=== PATIENT | female | born 1955 | race Caucasian/White ===

== ENCOUNTER 2018-07-25 16:54 | Inpatient (IN) | payer MEDICARE ==
[~2018-07-25] VITALS: Ht 165.1 cm; Wt 117.5 kg
[2018-07-25] VITALS (15 sets, daily range): O2SAT 93–99
[~2018-07-25 16:54] MED LIST: ATORVASTATIN; BLOOD PRESSURE MED OP; BYETTA IN; CENTRUM1 TAB PO; CHOLESTROL MED; GLUCOPHAGE500 MG PO; [UNRECOGNIZED DRUG - REMARK]; [UNRECOGNIZED DRUG - REMARK]
[2018-07-25 17:56] LABS: COLLECTION METHOD CLEAN CATCH
[2018-07-25 18:05] LABS: MUCOUS Present /lpf; PH 5 (5-8); SQUAMOUS EPITHELIAL None Seen /hpf; URINE APPEARANCE Turbid; URINE BACTERIA None Seen /hpf; URINE BILIRUBIN Negative (NEGATIVE); URINE BLOOD 3+ (NEGATIVE); URINE COLOR Amber; URINE GLUCOSE Negative (NEGATIVE); URINE KETONE Negative (NEGATIVE); URINE LEUKOCYTE ESTERASE 2+ (NEGATIVE); URINE NITRATE Negative (NEGATIVE); URINE PROTEIN(semi-quant) 2+ (NEGATIVE); URINE RBC 0-2 /hpf; URINE UROBILINOGEN Negative (NEGATIVE)
[2018-07-25 18:39] LABS: ALBUMIN 2.5 gm/dL (3.5-5.0); BILIRUBIN,TOTAL 0.6 mg/dL (0.0-1.0); C-REACTIVE PROTEIN 8.5 mg/dL (0.0-0.9); CALCIUM 8.1 mg/dL (8.4-10.2); POTASSIUM 4.7 mmol/L (3.4-5.0); TOTAL PROTEIN 7.3 gm/dL (6.4-8.2)
[2018-07-25 18:40] LABS: CREATININE, serum 4.79 mg/dL (0.52-1.25)
[2018-07-25 18:41] LABS: BASO # 0.1 (0.0-0.2); BASO % 0.4 % (0.0-2.0); EOS # 0.2 (0.0-0.7); EOS % 1.4 % (0-4.0); GRAN # 12.5 (1.4-6.5); GRAN % 88.3 % (42.2-75.2); HEMATOCRIT 30.5 % (37.0-47.0); HEMOGLOBIN 8.9 g/dl (12.5-16.0); LYMPH % 6.8 % (20.0-51.0); MEAN CELL VOLUME 82 fl (80.0-100.0); MEAN CORPUSCULAR HEMOGLOBIN 24 pg (27.0-31.0); MEAN CORPUSCULAR HGB CONC 29 g/dl (33.0-37.0); MONO # 0.3 (0.1-0.6); PLATELET COUNT 222 K/mm3 (130-400); RED BLOOD COUNT 3.71 M/mm3 (4.10-5.30); REDCELL DISTRIBUTION WIDTH-CV 18.3 % (11.5-14.5)
[2018-07-25 21:44] LABS: ARTERIAL BLD GAS TCO2 CT 26.4; ARTERIAL BLOOD GAS BASE EXCESS 0.3 (-2-2); ARTERIAL BLOOD GAS HCO3 25.1 meq/L (22-26); ARTERIAL BLOOD GAS PCO2 41.7 mmHg (35-45); ARTERIAL BLOOD GAS PO2 84.1 mmHg (80-100)
[2018-07-26] VITALS (1258 sets, daily range): BP systolic 67–140; BP diastolic 20–75; PULSE 81–102; TEMP 97.7–99.5; O2SAT 62–100
[2018-07-26 02:51] LABS: ARTERIAL BLD GAS O2 SATURATION 95.4 % (92-100); ARTERIAL BLOOD GAS BASE EXCESS -2.9 (-2-2); ARTERIAL BLOOD GAS HCO3 22.7 meq/L (22-26); ARTERIAL BLOOD GAS PCO2 43.2 mmHg (35-45); ARTERIAL BLOOD GAS PO2 94.4 mmHg (80-100); ARTERIAL BLOOD GAS pH 7.34 (7.35-7.45)
[2018-07-26 05:12] LABS: INR 1.4 (0.8-3.0); PROTHROMBIN TIME 15.5 SECONDS (9.7-12.8)
--- NOTE | 2018-07-26 05:12 | NUR ---
Received a call from [facility] nurse, instructed to increase levophed to 0.3 mcg/kg/min as BP continues to be low with MAP's less than 65.
[2018-07-26 05:18] LABS: CALCIUM 7.4 mg/dL (8.4-10.2); PHOSPHOROUS 3.8 mg/dL (2.5-4.5); POTASSIUM 4.3 mmol/L (3.4-5.0)
--- NOTE | 2018-07-26 05:30 | NUR ---
PT VERY SOMNOLENT AND UNRESPONSIVE TO QUESTIONS. FAMILY UNAVAILABLE DURING TIME OF ADMISSION AND VERY POOR HISTORIAN PER ER NURSE JOSHUA. ADMISSION DONE THROUGH THIS WOODWORK TEACHER'S BEST ABILITY. NO COPY OF MEDICATION OR ANY HOSPITAL/HOSPICE PAPERS BROUGHT WITH PATIENT. FAMILY HAS LIMITED KNOWLEDGE WELL REGARDING PT'S CONDITION AND MEDICATION BROWN.
[2018-07-26 05:31] LABS: ARTERIAL BLD GAS TCO2 CT 19.5; ARTERIAL BLOOD GAS BASE EXCESS -7.7 (-2-2); ARTERIAL BLOOD GAS HCO3 18.3 meq/L (22-26); ARTERIAL BLOOD GAS PCO2 38.8 mmHg (35-45); ARTERIAL BLOOD GAS PO2 66.1 mmHg (80-100); ARTERIAL BLOOD GAS pH 7.29 (7.35-7.45)
[2018-07-26 05:36] LABS: CREATININE, serum 4.62 mg/dL (0.52-1.25)
--- NOTE | 2018-07-26 06:51 | NUR ---
2225 - RECEIVED REPORT FROM DEBBIE LEWIS. 2315 - PT ARRIVED IN UNIT VIA STRETCHER ESCORTED BY TWO RN. PT SOMNOLENT AND ONLY OPENS HER EYES WHEN YOU CALL HER NAME. FAMILY UNAVAILABLE AT THIS TIME AND PER ER NURSE, IS A VERY POOR HISTORIAN. NO COPY OF MEDICATION OR PREVIOUS HOSPITALIZATION WAS BROUGHT WITH PATIENT, COPY REQUESTED FROM [facility] PER DEBBIE LEWIS. 2350 - [facility] CONSULTED. 0030 - CONSENT OBTAINED FROM VIA PHONE CALL ED FOR CENTRAL LINE PLACEMENT. 0130 - CENTRAL LINE AT LEFT JUGULAR PLACED BY DR. JACKSON. 0230 - DRESSING AT THE ABDOMINAL ULCER CHANGED WELL COLOSTOMY BAG AND DRESSING. 0330 - LEVOPHED STARTED PER ORDER. 0530 - LAB CALLED FOR CRITICAL CREATININE OF 4.62, NO NOTIFICATION NEEDED IT SI LOWER FROM PREVIOUS ONE WHICH IS 4.79. 0700 - PT STILL ON LEVOPHED AND CURRENT BP AT LOW 100'S WITH MAP OF 68.
--- NOTE | 2018-07-26 07:01 | NUR ---
LEVOPHED STARTED ORDERED AFTER BOLUS IS DONE.
--- NOTE | 2018-07-26 07:03 | NUR ---
RECEIVED A CALL FROM [facility] HEMA GONZALEZ AND ORDERED TO INCREASE LEVOPHED TO 0.2 MCG/KG/MIN.
[2018-07-26 09:11] LABS: MEAN CELL VOLUME 85 fl (80.0-100.0); MEAN CORPUSCULAR HGB CONC 29 g/dl (33.0-37.0); MEAN PLATELET VOLUME 10.9 fl (7.4-10.4); PLATELET COUNT 211 K/mm3 (130-400); RED BLOOD COUNT 2.91 M/mm3 (4.10-5.30); REDCELL DISTRIBUTION WIDTH-CV 18.3 % (11.5-14.5)
[2018-07-26 09:12] LABS: HEMATOCRIT 24.7 % (37.0-47.0); HEMOGLOBIN 7.1 g/dl (12.5-16.0); MEAN CORPUSCULAR HEMOGLOBIN 24 pg (27.0-31.0)
[2018-07-26 14:21] LABS: ANISOCYTOSIS 2+; BAND 7 % (0-10); LYMPHOCYTE 2 % (20.0-51.0); NEUTROPHILS 85 % (42.0-75.2)
[2018-07-26 14:22] LABS: HYPOCHROMIA 2+; PLATELET ESTIMATE NORMAL (NORMAL)
[2018-07-26 19:02] LABS: ALBUMIN 2.3 gm/dL (3.5-5.0); BILIRUBIN,TOTAL 0.7 mg/dL (0.0-1.0); CALCIUM 7.5 mg/dL (8.4-10.2); CREATININE, serum 3.83 mg/dL (0.52-1.25); POTASSIUM 3.7 mmol/L (3.4-5.0); TOTAL PROTEIN 6.1 gm/dL (6.4-8.2)
--- NOTE | 2018-07-26 19:20 | NUR ---
Received report from Norma Mistry RN.
--- NOTE | 2018-07-26 19:50 | NUR ---
Bedside report given to Laurence LEWIS. Medications and lines verified. Repositioned
--- NOTE | 2018-07-26 20:00 | NUR ---
Pt resting in bed during shift assessment. Pt cooperative and will follow commands. Keeps asking for water. Dark tissue noted on tongue and lips although pt refused oral care other than repeatedly asking for water. Water provided on swabs for oral care at this time. Pt currently has dressings in place on abdomen, panus, and coccyx wounds. Pt unable to answer any orientation questions appropriately besides month and day of . Pt did report currently location was in [place] and the current month pt was incoherent in repeated reply.
[2018-07-27] VITALS (1392 sets, daily range): BP systolic 60–142; BP diastolic 40–123; PULSE 50–111; TEMP 97.7–99.2; O2SAT 61–100
[2018-07-27 00:06] LABS: HEMATOCRIT 25.2 % (37.0-47.0); HEMOGLOBIN 7.4 g/dl (12.5-16.0)
--- NOTE | 2018-07-27 00:30 | NUR ---
Assessment complete. Completed a bed bath due to pt colostomy leakage upon assessment. Pt starting to show signs of increased restlessness through out this time, with refusing to wear oxymask for periods of time. Will try a nasal cannula to see if pt will tolerate better at this time. Dressings to abdomen, panus, and coccyx changed at this time. Scant amount of drainage noted to panus, bowel noted to dressing around stoma on abdomen, and brown drainage noted to coccyx dressing and packing at this time. New dressing put in place.
[2018-07-27 05:58] LABS: BASO % 0.2 % (0.0-2.0); EOS # 0.2 (0.0-0.7); EOS % 1.2 % (0-4.0); GRAN # 11.8 (1.4-6.5); GRAN % 83.1 % (42.2-75.2); LYMPH # 1.3 (1.2-3.4); LYMPH % 9.3 % (20.0-51.0); MEAN CELL VOLUME 83 fl (80.0-100.0); MEAN CORPUSCULAR HGB CONC 30 g/dl (33.0-37.0); MEAN PLATELET VOLUME 10.7 fl (7.4-10.4); MONO # 0.7 (0.1-0.6); MONO % 5.1 % (1.7-9.3); PLATELET COUNT 196 K/mm3 (130-400); RED BLOOD COUNT 3.27 M/mm3 (4.10-5.30); REDCELL DISTRIBUTION WIDTH-CV 17.8 % (11.5-14.5)
[2018-07-27 05:59] LABS: HEMOGLOBIN 8.1 g/dl (12.5-16.0); MEAN CORPUSCULAR HEMOGLOBIN 25 pg (27.0-31.0)
[2018-07-27 06:05] LABS: INR 1.5 (0.8-3.0); PROTHROMBIN TIME 16.9 SECONDS (9.7-12.8)
[2018-07-27 06:09] LABS: ALBUMIN 2.2 gm/dL (3.5-5.0); BILIRUBIN,TOTAL 0.9 mg/dL (0.0-1.0); CREATININE, serum 3.53 mg/dL (0.52-1.25); POTASSIUM 3.6 mmol/L (3.4-5.0); TOTAL PROTEIN 5.8 gm/dL (6.4-8.2)
--- NOTE | 2018-07-27 07:15 | NUR ---
Report provided to Norma Mistry RN. Pt resting in bed at this time with sounds consistent with snoring. Eyes are closed and no restlessness noted.
--- NOTE | 2018-07-27 07:15 | NUR ---
Bedside report recieved from Laurence LEWIS. Patient in bed, sleeps with snoring resps. Medications and lines verified. Repositioned at this time.
--- NOTE | 2018-07-27 14:17 | NUR ---
Patient lives at home with her (Ed Fabiola) in [place], [place] and plans to return home upon discharge. Patient gets medical and physical care assistance from her and supportive family as she has a complicated history of surgeries and has been on hospice in the past. Patient's primary care physician is Dr. Cherie Betancourt, her pharmacy is [facility], and she does not have advance directives completed at this time. food services coordinator will follow up as needed.
--- NOTE | 2018-07-27 15:00 | NUR ---
Comfort care at this time per family wishes. Orders recieved. Medication drips discontinued by Bia Rashid RN. Family at bedside. Question answered and emotioal support provided.
[2018-07-28] VITALS (493 sets, daily range): BP systolic 80; BP diastolic 45; PULSE 101; TEMP 99.4; O2SAT 72–98
--- NOTE | 2018-07-28 03:31 | NUR ---
0130 - DRESSING CHANGED ON ABDOMINAL ULCER AND BUTTOCKS, NOW CLEAN DRY AND INTACT. PT HAD A BED BATH AND BED LINEN CHANGED. PRN MEDICATION GIVEN NEEDED PER ORDER.
--- NOTE | 2018-07-28 07:30 | NUR ---
Bedside report received from DEBBIE Martinez. Wounds reviewed with night nurse, dressings changed. Care of patient assumed at this time.
--- NOTE | 2018-07-28 08:00 | NUR ---
Patient assessment complete. Patient is resting in bed, appears uncomfortable. Will administer medications for patient comfort per MAR. Will continue to monitor.
--- NOTE | 2018-07-28 12:00 | NUR ---
Patient resting in bed. Frequent pain assessments completed. Will continue to monitor.
--- NOTE | 2018-07-28 14:24 | NUR ---
SW called patients and scheduled a Pallative meeting at 10:30 am. Pallative care nurse informed.
--- NOTE | 2018-07-28 15:25 | NUR ---
Advised per psychiatric social worker supervisor Yi, that is not available for palliative consult until tomorrow at 1030. Will plan on meeting with him then to discuss where we go from here. Pt is currently on comfort care here at the hospital.
--- NOTE | 2018-07-28 16:30 | NUR ---
Bed change completed with Madiha and Pietro, RNs. Coccyx dressing and abdominal dressings changed. Linens changed. Patient made comfortable. Will continue to monitor.
--- NOTE | 2018-07-28 17:20 | NUR ---
Report called to DEBBIE Slade. Patient transferred to medical floor, room 357. This nurse takes patient by bed to room. Family present upon arrival. Yany meets this nurse at room. Wounds reviewed with Yany.
--- NOTE | 2018-07-28 18:19 | NUR ---
Patient arrived to room at 1710, received room from [facility] from ICU. Patient transferred to room bed. Upon entering room, family is present. Patient is noted to be laying on left side. Face is flushed and clammy. Speech is slurred and difficult to understand. Family has asked for a pepsi for the patient and she took a few sips. Pain medication administered as patient is complaining of hip pain. After assessment, patient complained of shoulder pain and was repositioned slightly to right side. Facial expression has relaxed after this. Did attempt to get vital signs an family would prefer that her blood pressure be taken as little as possible as they feel it agitates her. They wish for it not to be done at this time. They agreed to have it checked with shift assessment only if she were to tolerate it. ICU nurse reports dressings were changed shortly before arriving to room, they look clean dry and intact. Colostomy bag noted to have a small amount of liquid stool. Abdomen is covered with ABD pads as she has wounds around colostomy. The wound around the colostomy site is reported to be covered in xeroform gauze and an abd pad. It is also reported that there are multiple stage I-II wounds and breakdown area to abdomen. There is a noted wound under patients pannus with a telfa pad seperating the skin. It was reported that there is a large 6-10 inch deep unstageable wound to the coccyx which was changed before arriving to room. There is a triple lumen IJ to the left neck. Patient has a geller catheter to dependent drain. There is wheezing noted to bilateral upper lobes on expiration. Lung sounds clear and diminished at bases. Bowel sounds are present to upper quadrants. Patient moaned in pain when trying to assess lower quadrants. HR is regular and 100 bpm. There is 3+ edema to bilateral lower extremities. Skaly skin is noted to bottom of both feet and right foot has some scaling and discoloration to bend of foot. Patient currently has a relaxed facial expression, call light is within reach.
--- NOTE | 2018-07-29 03:08 | NUR ---
Pt resting and sleeping, easily awaken, shift assessments complete, left Pt call light in reach, bed in lowest position.
--- NOTE | 2018-07-29 05:41 | NUR ---
Pt resting comfortably in bed, she is easily aroused from sleep and has been receiving roxanol for pain relief, Pt has been scoring low on the RFLACC scale, pain relief seems adequate at this time.
--- NOTE | 2018-07-29 07:49 | NUR ---
Pt in bed with eyes closed, turned to right side for comfort. At initiation of head-to-toe assessment pt began to moan loudly with facial grimmace. Pt's facial grimmace and moaning stopped after assessment ceased. Due to increased discomfort, pain assessment and turning for comfort will be the only assessments performed. No family or visitors present. Pt opens eyes to voice, does not follow commands or responds to questions. Call light within reach, TV on with volume audible.
--- NOTE | 2018-07-29 10:57 | NUR ---
Family meeting held with and daughter in law with myself and Sierra Bhatt [facility]. shared the history of his 's illness from surgical admission on in [place] to present. Support was provided to as he shared this difficult story. He was asked where he would want his to go for comfort care from the hospital. I had spoken to delia at the [facility] house who reported that they would be willing to take this pt back as long as the family understood that this is a terminal diagnosis and is anticpated. This was verbalized by both family members as their understanding now. They openly admitted that they did not realize how bad her condition was and now realize "how foolish I was" per . Support provided. We will anticipate discharge to [facility] tomorrow and will send updates for hospice house review.
[2018-07-29 21:09] VITALS: BP 107/59; PULSE 104; TEMP 98.2
--- NOTE | 2018-07-29 22:00 | NUR ---
Pt has been resting comfoertably- now in to turn patient and colostomy bag has leaked all over bed-- will clean up pt, replace colostomy bag-- also will redress wounds- very large sacral wound with saturated dressing- pain meds given at this time, pt eyes closed, does moan especially when turned- does not answer questions
--- NOTE | 2018-07-29 23:30 | NUR ---
Di change all pts dressings at this time with assistance-- abd wounds applied xeroform dressing with gauze and ABD- covered with paper tape,,, sacral wounds changed- had scotty ng drainage- large deep wound- packed with numerous kerlix soaked in dakins solution--covered with 3 abd,s and paper tape used- pt maoning, crying, wanting a drink of water- water given with assist, repositioned in bed-- will give Morphine IV at this time for pain-- did have the roxanol 20 mg oral an hour earlier-
[2018-07-29 23:33] VITALS: BP 113/61; PULSE 112; TEMP 97.6
--- NOTE | 2018-07-30 04:50 | NUR ---
Colostomy bag leaking- abd dressing with new ABD applied- colostmy bag changed-- pt repositioned- , mouth care given,, pain meds given,pt crying with repositioning- Roxanol given at 0330 and again at 0440 for moaning- will continue to assess.
[2018-07-30] MEDS ORDERED: ROXANOL 20MG20 MG/ML SL (09:13)
[2018-07-30] MEDS ORDERED: TRANSDERM-0.5 MG/21 TD (09:14)
[2018-07-30] MEDS ORDERED: LORAINT PO (09:14)
[2018-07-30] MEDS ORDERED: FENTANYL 25 MCG TD (09:14)
[2018-07-30] MEDS ORDERED: ZOFRAN ODT4 MG PO (09:15)
--- NOTE | 2018-07-30 09:48 | NUR ---
Sat with pt this morning for about an hour. She reports she is being treated more like a person now. She did drink an 8 oz sprite and said it tasted good. She reports that her pain control is better but hopes it will get better still. She does report good results from her roxanol dose and she is observed relaxing after the last dose was given. The patient did agree that she would like to have her IJ removed as "it is in the way". She would like to keeop her geller catheter to decrease the amount of repositioning she has to do. Pt is now on a general diet and will let us know if she wants something to eat. Plan for discharge to hospice house later today.
--- NOTE | 2018-07-30 09:52 | NUR ---
Pt is awake and alert to self. She states she is in pain but unable to rate on numeric scale. Pt given PRN roxanol for pain. Triple lumen to left IJ is free of complications. Colostomy bag is draining brown stool without difficulty. Alvarez cath to DD is draining clear, yellow urine without complications. Dressing to abdomen and sacrum are CDI. Pt sipping on Sprite. Kaitlin Castaneda RN is at bedside.
--- NOTE | 2018-07-30 10:02 | NUR ---
SW attended clinical rounds. Patient will discharge today to the [facility] at 11am. SW contacted patient about discharge. SW explained IM to him and he gave verbal consent over the phone. JAMIL contacted [facility] and arranged transportation for 11am.
--- NOTE | 2018-07-30 10:14 | NUR ---
Triple lumen to left IJ removed. Pressure held for 5 min, no bleeding noted. Dressing applied. Pt tolerated well.
--- NOTE | 2018-07-30 11:22 | NUR ---
Pt was discharged back to [facility]. Report called to DEBBIE Camacho. Alvarez cath left in place per KRYS Schwartz's order.
== END 2018-07-30 11:23 | disposition hospice, inpatient (51) | DRG 871 ==
LOC: COL.ER 16:54 → ICU 20:21 → MEDICAL 07-28 17:21
PROVIDERS: Emergency Medicine; Internal Medicine; Internal Medicine Pulmonary Disease; ADMIT Internal Medicine
PROC: 02HV33Z Insertion of Infusion Device into Superior Vena Cava, Percutaneous Approach (ICD-10-PCS; principal; 2018-07-26)
DX: A41.59 Other Gram-negative sepsis (principal); J18.9 Pneumonia, unspecified organism; L89.44 Pressure ulcer of contiguous site of back, buttock and hip, stage 4; R65.21 Severe sepsis with septic shock; N17.0 Acute kidney failure with tubular necrosis; Z66 Do not resuscitate; Z51.5 Encounter for palliative care; Z68.41 Body mass index [BMI] 40.0-44.9, adult; E87.0 Hyperosmolality and hypernatremia; E87.2 Acidosis; E66.01 Morbid (severe) obesity due to excess calories; E11.9 Type 2 diabetes mellitus without complications; E86.0 Dehydration; I10 Essential (primary) hypertension; D64.9 Anemia, unspecified
CPT/HCPCS: 99223-AI; 99231-AI; 99232-AI; 99233-AI; 99239; J1815; J1956; J2060; J2270; J2543; J3010; J3370; J7030; J7050; J7060; J7120; P9016; P9047